=== PATIENT | female | born 1950 | race Caucasian/White ===

== ENCOUNTER 2021-05-02 16:38 | Emergency (ER) | payer OTHER, MEDICAID ==
[~2021-05-02] VITALS: Ht 177.8 cm; Wt 74.8 kg
[~2021-05-02 16:38] MED LIST: ASPI1TAB91 PO; BUPR-160 PO; DIA5T PO; ESTR1TAB5 PO; FLUT0.05 NAS; LEVO100T3 PO; METO25TA93 PO; NITR0.4S29 SL; OME20GT PO; PERCOT PO; PRED10TA PO; SUCR1SUS5 PO
[2021-05-02 16:46] VITALS: BP 166/108
[2021-05-02 18:31] LABS: Basophils # (auto) 0 10 ^3/uL (0-0.2); Basophils % (auto) 0.6 % (0.0-2.0); Eosinophils # (auto) 0 10 ^3/uL (0-0.8); Eosinophils % (auto) 0.6 % (0.0-7.0); Hematocrit 42.2 % (36.0-46.0); Hemoglobin 14.2 g/dL (12.2-16.2); Lymphocytes # (auto) 1.4 10 ^3/uL (0.4-5.4); Mean Corpuscular Hgb Conc. 33.6 g/dL (32.0-36.0); Mean Corpuscular Volume 89.1 fL (80.0-100.0); Monocytes # (auto) 0.4 10 ^3/uL (0-1.3); Monocytes % (auto) 6.3 % (0.0-12.0); Neutrophils # (auto) 4.7 10 ^3/uL (1.6-8.6); Neutrophils % (auto) 71.5 % (37.0-80.0); Nucleated Red Blood Cells % 0.1 %; Red Blood Cells 4.73 10^6/uL (4.0-5.20); Red Cell Distribution Width 13.8 % (11.8-14.3); White Blood Cell 6.5 10^3/uL (4.4-10.8)
[2021-05-02 18:45] LABS: Albumin 3.5 g/dL (3.4-5.0); Calcium 8.2 mg/dL (8.5-10.1); Magnesium 3.3 mg/dL (1.6-2.6); Potassium 4.7 mmol/L (3.5-5.1)
[2021-05-02 18:46] LABS: INR 1.01 (0.9-1.15); Partial Thromboplastin Time 25.1 sec (23.6-33.0)
[2021-05-02 18:50] LABS: BUN/Creatinine Ratio 16.5; Bilirubin, Total 0.3 mg/dL (0.2-1.0); Total Protein 6.5 g/dL (6.4-8.2)
== END 2021-05-03 19:40 | disposition home or self-care (01) ==
LOC: EDBD 16:38 → EDUNIT# 16:38 → ER 16:44
DX: R07.89 Other chest pain (principal); I12.9 Hypertensive chronic kidney disease with stage 1 through stage 4 chronic kidney disease, or unspecified chronic kidney disease; N18.9 Chronic kidney disease, unspecified; Z90.710 Acquired absence of both cervix and uterus; Z88.1 Allergy status to other antibiotic agents; Z88.6 Allergy status to analgesic agent
CPT/HCPCS: 36415; 71045; 80053; 83735; 83880; 84443; 84484; 85025; 85379; 85610; 85730; 93005

== ENCOUNTER → 2024-02-09 | Outpatient (CLI) | payer OTHER ==
[~2024-02-09] VITALS: Ht 162.6 cm; Wt 76.7 kg
[~2024-02-09] MED LIST changes: +ADENOSINE 64 MG in GIVE UN-DILUTED 0 ML IV ONE; +ADENOSINE 90 MG/30 ML INJ IV ONE; -ASPI1TAB91 PO; +ASPI81TA28 PO; -BUPR-160 PO; +BUPR-346 PO; +cloNIDine HCL 0.1 MG TAB ONE
== END | disposition home or self-care (01) ==
LOC: Rad HDHVI 09:04
PROVIDERS: ATTEND Internal Medicine Cardiovascular Disease
DX: I13.0 Hypertensive heart and chronic kidney disease with heart failure and stage 1 through stage 4 chronic kidney disease, or unspecified chronic kidney disease (principal); N18.9 Chronic kidney disease, unspecified; I50.33 Acute on chronic diastolic (congestive) heart failure; I49.5 Sick sinus syndrome; E78.00 Pure hypercholesterolemia, unspecified; Z82.49 Family history of ischemic heart disease and other diseases of the circulatory system
CPT/HCPCS: 78452; 93005; 96374; 96375; A9500; J0153

== ENCOUNTER → 2024-03-21 | Outpatient (CLI) | payer OTHER, MEDICAID ==
[~2024-03-21] MED LIST changes: -ADENOSINE 64 MG in GIVE UN-DILUTED 0 ML IV ONE; -ADENOSINE 90 MG/30 ML INJ IV ONE; +ALBUAER3 IN; +BUSP5TAB51 PO; +ERGO1CAP23 PO; +HYDR50TA47 PO; +POM PO; -cloNIDine HCL 0.1 MG TAB ONE
[2024-03-21 09:05] VITALS: BP 137/70; PULSE 55; RESP 18; O2SAT 95
[2024-03-21 09:15] VITALS: BP 123/68; PULSE 52; RESP 18; O2SAT 95
--- NOTE | 2024-03-21 13:10 | DVH ---
EXAM: XY CHEST TWO VIEWS ROUTINE CLINICAL HISTORY: pain COMPARISON: None TECHNIQUE: Frontal and lateral view of the chest was obtained FINDINGS: Lines and Tubes: None Lungs: No focal consolidation. Pleura: No effusion. No pneumothorax. Cardiomediastinal contours: Unremarkable. Atherosclerotic vascular calcifications of the thoracic aor ta are noted. Bones: No acute osseous abnormality. IMPRESSION: No acute cardiopulmonary disease.
== END | disposition home or self-care (01) ==
LOC: Rad HDHVI 11:52
PROVIDERS: ATTEND Internal Medicine Cardiovascular Disease
DX: Z01.818 Encounter for other preprocedural examination (principal); I51.7 Cardiomegaly; I25.10 Atherosclerotic heart disease of native coronary artery without angina pectoris; R00.1 Bradycardia, unspecified; R00.2 Palpitations
CPT/HCPCS: 71046; 93005; G0463

== ENCOUNTER 2024-03-24 06:59 | Day surgery (SDC) | payer OTHER, MEDICAID ==
[2024-03-21 14:23] LABS: Basophils # (auto) 0 10 ^3/uL (0-0.2); Basophils % (auto) 0.5 % (0.0-2.0); Eosinophils # (auto) 0 10 ^3/uL (0-0.8); Eosinophils % (auto) 0.4 % (0.0-7.0); Hematocrit 42.4 % (36.0-46.0); Lymphocytes # (auto) 1.1 10 ^3/uL (0.4-5.4); Lymphocytes % (auto) 17.1 % (10.0-50.0); Mean Corpuscular Hemoglobin 28.9 pg (28.0-32.0); Mean Corpuscular Volume 87.6 fL (80.0-100.0); Monocytes # (auto) 0.4 10 ^3/uL (0-1.3); Monocytes % (auto) 6.3 % (0.0-12.0); Neutrophils # (auto) 4.7 10 ^3/uL (1.6-8.6); Neutrophils % (auto) 75.7 % (37.0-80.0); Platelet Count (auto) 227 10^3/uL (140-450); Red Blood Cells 4.84 10^6/uL (4.0-5.20); White Blood Cell 6.2 10^3/uL (4.4-10.8)
[2024-03-21 14:46] LABS: Chloride 107 mmol/L (98-107); Potassium 4.6 mmol/L (3.5-5.1); Sodium 143 mmol/L (136-145)
[2024-03-21 14:47] LABS: Anion Gap 7 (5-15); Calcium 9.7 mg/dL (8.7-10.4); Carbon Dioxide 29 mmol/L (20-31); Partial Thromboplastin Time 24.9 SEC (24.5-34.5); Prothrombin Time 10.6 sec (9.3-11.8)
[2024-03-21 14:52] LABS: Blood Urea Nitrogen 16 mg/dL (9-23); Glucose 101 mg/dL (74-106)
[~2024-03-24] VITALS: Ht 160 cm; Wt 76.2 kg
[2024-03-24] VITALS (11 sets, daily range): BP systolic 102–174; BP diastolic 62–99; PULSE 63–80; RESP 12–18; O2SAT 92–97
[~2024-03-24 06:59] MED LIST changes: -ASPI81TA28 PO; -DIA5T PO; -FLUT0.05 NAS; -SUCR1SUS5 PO
[2024-03-24] MEDS ORDERED: VANCOMYCIN HCL 1000 MG VL ONE (10:36)
[2024-03-24] MEDS ORDERED: fentaNYL CITRATE 100 MCG/2 ML VL ONE ×2 (10:36→11:31)
[2024-03-24] MEDS ORDERED: MIDAZOLAM HCL 2MG/2ML 2ml VIAL (1mg/ml) ONE ×2 (10:36→11:31)
[2024-03-24] MEDS ORDERED: LIDOCAINE 2%HCL (LOCAL ANESTH.) INJ 20ML MDV ONE (10:37)
[2024-03-24] MEDS ORDERED: IODIXANOL 320MG/ML 100ML BTL IV ONE (10:38)
[2024-03-24] MEDS ORDERED: ceFAZolin 1GM VL ONE (10:46)
[2024-03-24] MEDS ORDERED: ceFAZolin 1GM/50ML 50 ML IV ONE (10:47)
[2024-03-24] MEDS ORDERED: OXYCODONE W/ ACETAMINOPHEN 5/325MG TABLET ONE (10:48)
[2024-03-24] MEDS: OXYCODONE W/ ACETAMINOPHEN 5/325MG TABLET PO ONE (10:52)
[2024-03-24] MEDS ORDERED: HYDROmorphone HCL 2 MG/ML VL/or syr ONE (11:34)
--- NOTE | 2024-03-24 12:47 | DVHOP ---
DATE OF SURGERY: 03/24/2024 INDICATIONS: The patient with sick sinus syndrome, now to undergo dual chamber permanent pacemaker implantation. The patient with sarcoidosis, conduction abnormality. PROCEDURE PERFORMED: * Dual chamber permanent pacemaker implantation. * Venography. * Conscious sedation. DESCRIPTION OF PROCEDURE: The patient was prepped and draped in a sterile condition. 1% Xylocaine used to anesthetize the left subclavicular region. Using a Cook needle, following venography, left subclavian vein was engaged with Seldinger technique, a guidewire was then appropriately positioned. Using a 10 blade, linear incision was made using blunt dissection, electrocautery, pocket was then dissected out. Using a 9-Ugandan peel-away sheath, right ventricular active fixation lead then appropriately positioned. Threshold parameters obtained. Lead was secured to the chest wall using 0 Ethibond. Similarly using a 7-Ugandan sheath, atrial active fixation lead then appropriately positioned. Threshold parameters obtained, lead was secured to the chest wall using 0 Ethibond. Generator was implanted. Generator pocket was irrigated using vancomycin and Ancef saline solution, then pocket was closed using 3-0 Monoderm subcutaneous sutures followed by 3-0 Monoderm subcuticular sutures. There were no complications. The patient tolerated the procedure well. Device implanted is Biotronik MRI compatible dual-chamber permanent pacemaker, Edora 8 DR-T, model #549874, serial #[id number]. RV lead is Solia S53, model #723837, serial #[id number]. Atrial lead is Solia S45, model #442676, serial #[id number]. Threshold parameters atrium, P-wave amplitude of 2.2 millivolts, threshold 0.7 volts at 0.4 milliseconds pulse duration, pacing impedance of 465 ohms. Right ventricular lead, R-wave amplitude 5.4 millivolts, threshold 0.4 volts at 0.4 milliseconds pulse duration, pacing impedance of 700 ohms. CONCLUSION: The patient has successful implantation of Biotronik MRI compatible dual-chamber permanent pacemaker. Delta Paul MD SA/RYAN TID: [id number] RECEIPT: [id number]
[2024-03-24] MEDS: ONDANSETRON HCL 4 MG/2 ML VIAL IV ONE (12:57)
--- NOTE | 2024-03-24 13:01 | DVH ---
CHEST RADIOGRAPH Indication: S/P PACEMAKER Technique: Single frontal view of the chest was obtained Comparison: Chest radiograph 03/21/2024 FINDINGS: Lines and Tubes: Interval insertion of a left-sided cardiac pacemaker with leads projecting over the right atrium and right ventricle. Lungs: No focal consolidation. Diffuse bilateral interstitial prominence. Pleura: No effusion. No appreciable pneumothorax. Cardiomediastinal contours: Cardiomegaly Bones: No acute osseous abnormality. IMPRESSION: 1. Interval insertion of a left-sided cardiac pacemaker. Cardiomegaly with pulmonary vascular congest ion. No appreciable pneumothorax. HS:Y
--- NOTE | 2024-03-24 13:07 | DVHHP ---
ADMIT DATE: 03/24/2024 HISTORY OF PRESENT ILLNESS: The patient with history of atrial fibrillation. History of lumbar cage, 3 back surgeries. Sarcoidosis, hyperparathyroidism, status post parathyroidectomy. History of hypertension, now with bradycardia. 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 Currently, the patient is on low dose of metoprolol, hydralazine. She has got paroxysmal atrial fibrillation. anticoagulation will be held prior to her permanent pacemaker implantation. The risks and benefits were explained to the patient. The patient understands and agrees. In the meantime, the patient denies any fever or chills. No melena, hematochezia, hematemesis, hemoptysis. No history of hematuria. The patient is seen and evaluated by Nephrology. Denies any syncopal episode at this time. Denies any seizure disorder. No CVAs in the past. No history of any neurological complication of sarcoidosis. PHYSICAL EXAMINATION: VITAL SIGNS: Blood pressure is 134/80, pulse of 70, O2 saturation 98% on room air. HEENT: Pupils are reactive. Funduscopic exam is benign. Sclerae anicteric. Extraocular muscles are intact. No exudates noted. Tympanic membranes are negative. Oral mucosa moist. Posterior pharynx without any exudates. NECK: Supple. No nuchal rigidity appreciated. No cervical adenopathy noted. No supraclavicular adenopathy. She does not have any axillary adenopathy as well. Carotid pulses are 2+ symmetrical. Normal upstroke and contour. No JVD appreciated. Thyroid is within normal limits. PULMONARY: Clear to auscultation. Tympanic to percussion. No rhonchi, no wheezes. No egophony. CARDIOVASCULAR: Regular rate without S3, without S4. PMI is not displaced. ABDOMEN: Soft. Nontender, obese. Unable to appreciate any organomegaly. Stool guaiac is negative. NEUROLOGIC: The patient is intact. DTRs are 2+ symmetrical. Cranial nerves 2 through 12 within normal limits. Sensory and motor modalities are intact. Negative for ataxia. Negative for Babinski. Negative for pronator drift. EXTREMITIES: 1+ pulses bilaterally. ASSESSMENT AND PLAN: Thus, the patient with: * Sarcoidosis, now with conduction abnormality. The patient is scheduled to undergo dual chamber permanent pacemaker implantation. Further recommendations after the implantation. * The patient with paroxysmal atrial fibrillation with hypercoagulable state. Will hold Eliquis for her permanent pacemaker implantation. Delta Paul MD SA/TESSIE/ESTEFANI TID: [id number] RECEIPT: [id number]
--- NOTE | 2024-03-24 23:42 | DVHDS ---
DATE OF DISCHARGE: 03/24/2024 DISCHARGE DIAGNOSES:0 * Sarcoidosis. * History of conduction abnormality, atrioventricular kacie block. The patient underwent successful dual-chamber permanent pacemaker implantation. HOSPITAL COURSE: The patient is clinically stable, may be discharged home. Follow up with me in 1 week. Stable at the time of discharge. ACTIVITY: As instructed. DIET: Will be 2 gram sodium diet. MEDICATIONS: The patient is to resume all home medications except any anticoagulation for 3 days. Delta Paul MD SA/TESSIE TID: [id number] RECEIPT: [id number]
--- NOTE | 2024-03-29 10:29 | ECG ---
[facility] Test Date: 2024-03-24 Test Time: 13:29:45 Pat Name: LANE KATZ Department: Room: Gender: F Admission Specialist: VERONICA : 1950 Requested By: AISHA MONTOYA Order Number: [id number] Reading MD: Reynold Knight Measurements Intervals [place] Rate: 74 P: 0 IL: 186 QRS: -23 QRSD: 66 T: -5 QT: 376 QTc: 417 Interpretive Statements Sinus rhythm with premature supraventricular complexes Voltage criteria for left ventricular hypertrophy Possible Lateral infarct , age undetermined Electronically Signed On 03-29-2024 13:32:43 PST by Reynold Knight Please click the below link to view image of tracing.
--- NOTE | 2024-03-29 10:29 | ECG ---
[facility] Test Date: 2024-03-24 Test Time: 13:30:47 Pat Name: LANE KATZ Department: Room: Gender: F [employer]: VERONICA : 1950 Requested By: AISHA MONTOYA Order Number: [id number] Reading MD: Reynold Knight Measurements Intervals [place] Rate: 65 P: 5 IL: 162 QRS: -22 QRSD: 72 T: -3 QT: 404 QTc: 420 Interpretive Statements Sinus rhythm with premature atrial complexes Voltage criteria for left ventricular hypertrophy Possible Lateral infarct , age undetermined Electronically Signed On 03-29-2024 13:32:43 PST by Reynold Knight Please click the below link to view image of tracing.
== END 2024-03-24 14:55 | disposition home or self-care (01) ==
LOC: CATH 06:59
PROVIDERS: ATTEND Internal Medicine Cardiovascular Disease
DX: I49.5 Sick sinus syndrome (principal); I44.30 Unspecified atrioventricular block; D68.59 Other primary thrombophilia; D86.9 Sarcoidosis, unspecified; I11.9 Hypertensive heart disease without heart failure; I48.0 Paroxysmal atrial fibrillation; R07.89 Other chest pain; R06.09 Other forms of dyspnea; R06.02 Shortness of breath; Z79.899 Other long term (current) drug therapy; I49.1 Atrial premature depolarization; Z98.890 Other specified postprocedural states; Z79.01 Long term (current) use of anticoagulants
CPT/HCPCS: 33208; 36415; 71045; 80048; 85025; 85610; 85730; C1785; J0690; J1171; J2250; J2405; J3010; Q9967; 99152

== ENCOUNTER → 2024-03-25 | Outpatient (CLI) | payer OTHER, MEDICAID ==
--- NOTE | 2024-03-25 12:09 | DVH ---
XY CHEST TWO VIEWS ROUTINE CLINICAL HISTORY: POST OP SOB COMPARISON: XY CHEST TWO VIEWS ROUTINE on DOS: 03/21/24 TECHNIQUE: Frontal and lateral view of the chest was obtained FINDINGS: Lines and Tubes: None. Left chest cardiac pacemaker with leads projecting over the right atrium and right ventricle. Lungs: No focal consolidation. Pleura: No effusion. No pneumothorax. Cardiomediastinal contours: Unremarkable Bones: No acute osseous abnormality. IMPRESSION: 1. Left chest cardiac pacemaker with leads projecting over the right atrium and right ventricle. No a ppreciable pneumothorax. HS:Y
== END | disposition home or self-care (01) ==
LOC: Rad HDHVI 09:49
PROVIDERS: ATTEND Internal Medicine Cardiovascular Disease
DX: R06.02 Shortness of breath (principal); Z95.0 Presence of cardiac pacemaker
CPT/HCPCS: 71046

== ENCOUNTER → 2024-05-31 | Outpatient (CLI) | payer OTHER, MEDICAID ==
--- NOTE | 2024-05-31 15:53 | DVHSR ---
APPROVED REPORT EXAM: Two-dimensional and M-mode echocardiogram with Doppler and color Doppler. DIMENSIONS LVDd4.0 (3.8-5.7cm)LA (2D)4.1 (1.9-4.0cm)Aortic Root3.7 (2.0-3.7cm) LVDs2.7 (2.5-4.0cm)LA (MM) (1.9-4.0cm)Aortic Cusp Exc1.7 (1.5-2.0cm) EF (%) 60.5 (55-70%)Rt. Atrium2.7 (1.9-4.0cm)Asc. Aorta cm IVSd1.4 (0.7-1.1cm)RV (D) (1.8-2.4cm) PWd1.4 (0.7-1.1cm) Mitral Valve MitralMitral Stenosis E wave0.62m/sMV Mean GR.mmHg A wave0.94m/sMV Peak GR.15mmHg E/A ratio0.72D MVAcm2 DECEL [id number] 1/2 [place] Aortic Valve Aortic ValveAortic Stenosis V10.95m/Stephanie Mean GR.2mmHg V21.09m/Stephanie Peak GR.5mmHg Pulmonic Valve V20.59m/s Tricuspid Valve TR Velocity2.23m/s [id number] LEFT VENTRICLE The Ejection Fraction is >55%. ATRIA The left atrium is mildly dilated. The right atrium size is normal. MITRAL VALVE The mitral valve is normal in structure and function. Mitral regurgitation is mild. PULMONIC VALVE The pulmonic valve is not well visualized. TRICUSPID VALVE The tricuspid valve is grossly normal. There is trace tricuspid regurgitation. AORTIC VALVE The aortic valve opens well. No aortic regurgitation is present. GREAT VESSELS The aortic root is normal size. PERICARDIAL EFFUSION There is no pericardial effusion. Conclusion CONC LVH MILD LAE EF >55%
== END | disposition home or self-care (01) ==
LOC: Rad HDHVI 08:49
PROVIDERS: ATTEND Internal Medicine Cardiovascular Disease
DX: I34.0 Nonrheumatic mitral (valve) insufficiency (principal); I51.7 Cardiomegaly; I31.39 Other pericardial effusion (noninflammatory)
CPT/HCPCS: 93306